=== PATIENT | male | born 1995 | race Two or more races ===

== ENCOUNTER 2023-03-21 12:08 | Outpatient (REF) | payer OTHER, SELFPAY ==
--- NOTE | ~2023-03-21 | US_ITS ---
EXAMINATION: US THYROID CLINICAL INFORMATION: Right thyroid nodule noted on previous CT COMPARISON: None available. TECHNIQUE: Linear transducer grayscale and color Doppler examination with attention to the region of the thyroid. FINDINGS: SIZE: Measurements of the thyroid lobes and nodules are given in sagittal, anteroposterior and transverse dimensions respectively. Right Thyroid Lobe: 5.6 x 2.2 x 3.5 cm, volume 22.6 mL. Parenchyma: The gland echotexture is homogeneous. Thyroid vascularity is normal. Left Thyroid Lobe: 4.8 x 1.7 x 1.5 cm, volume 6.4 mL. Parenchyma: The gland echotexture is homogeneous. Thyroid vascularity is normal. Isthmus: 0.3 cm in maximum AP dimension. Estimated total number of nodules greater than or equal to 1 cm: 1. Operator Cavity Pump nodules are described as follows: 1. Location: Right mid. Size: 3.1 x 1.7 x 2.5 cm, volume 6.9 mL. Nodule characteristics: Composition: Mixed cystic and solid (1). Echogenicity: Isoechoic (1). Shape: Not taller than wide (0). Margins: Smooth (0). Echogenic Foci: None (0). ACR TI-RADS total points: 2 ACR TI-RADS category: 2 NODES: No lymphadenopathy is seen in the tissue surrounding the thyroid gland. US/US thyroid IMPRESSION: 3.1 cm TR 2 mixed cystic and solid nodule right mid thyroid. No follow-up recommended as per ACR TI-RADS. ACR TI-RADS RECOMMENDATION REFERENCE: Ultrasound-guided fine-needle aspiration, followup ultrasound, no further follow up. * TR1 (0 point) and TR2 (2 points): No FNA or follow up. * TR3 (3 points): FNA if more than or equal to 2.5 cm in maximum dimension, followup ultrasound in 1, 3 and 5 years if 1.5 to 2.4 cm in maximum dimension. * TR4 (4-6 points): FNA if more than or equal to 1.5 cm in maximum dimension, followup ultrasound in 1, 2, 3 and 5 years if 1 to 1.4 cm in maximum dimension. * TR5 (more than or equal to 7 points): FNA if more than or equal to 1 cm in maximum dimension, followup ultrasound every year for 5 years if 0.5 to 0.9 cm in maximum dimension. * TR3, TR4 or TR5 nodules that are below the size threshold for followup receive no follow up.
== END 2023-03-21 12:09 | disposition home or self-care (01) ==
LOC: HO.UMASIMG 12:08
PROVIDERS: Visit Provider Family Medicine
DX: E04.1 Nontoxic single thyroid nodule (principal)
CPT/HCPCS: 76536

== ENCOUNTER 2023-12-03 06:32 | Outpatient (REF) | payer OTHER, SELFPAY ==
--- NOTE | ~2023-12-03 | US_ITS ---
EXAMINATION: US THYROID CLINICAL INFORMATION: Nontoxic single thyroid nodule, followup.. COMPARISON: Ultrasound thyroid 03/21/2023. TECHNIQUE: Linear transducer grayscale and color Doppler examination with attention to the region of the thyroid. FINDINGS: SIZE: Measurements of the thyroid lobes and nodules are given in sagittal, anteroposterior and transverse dimensions respectively. Right Thyroid Lobe: 5.8 x 1.8 x 1.9 cm, volume 10.4 mL. Previously 5.6 x 2.2 x 3.5 cm, volume 22.6 mL. Parenchyma: The gland echotexture is homogeneous. Thyroid vascularity is normal. Left Thyroid Lobe: 4.9 x 2.1 x 1.9 cm, volume 10.2 mL. Previously 4.8 x 1.7 x 1.5 cm, volume 6.4 mL. Parenchyma: The gland echotexture is homogeneous. Thyroid vascularity is normal. Isthmus: 0.41 cm in maximum AP dimension. Previously 0.30 cm. Estimated total number of nodules greater than or equal to 1 cm: 0. Squirrel Worker nodules are described as follows: 1. Location: Right mid. Size: 0.8 x 0.6 x 0.9 cm, volume 0.23 mL. Previously: 3.1 x 1.7 x 2.5 cm, volume 6.9 mL. Nodule characteristics: Composition: Solid (2). Echogenicity: Hypoechoic (2). Shape: Not taller than wide (0). Margins: Smooth (0). Echogenic Foci: None (0). ACR TI-RADS total points: 4 Previous: 2 ACR TI-RADS category: 4 Previous: 2 Significant change in size (>/= 20% in 2 dimensions and minimal increase of 2 mm or 50% or greater increase in volume): Yes Change in features: Yes Change in ACR TI-RADS risk category: Yes NODES: No lymphadenopathy is seen in the tissue surrounding the thyroid gland. US/US thyroid IMPRESSION: Decreased volume of the right lobe of the thyroid, most likely related with the significant interval decreased in size of a previously described 3 cm nodule which now measures 0.9 cm. The nodule demonstrates decreased cystic component, now classified as a TR-4 mostly solid hypoechoic nodule. Recommend follow-up ultrasound in one year. ACR TI-RADS RECOMMENDATION REFERENCE: Ultrasound-guided fine-needle aspiration, follow up ultrasound, no further followup. * TR1 (0 point) and TR2 (2 points): No FNA or followup * TR3 (3 points): FNA if more than or equal to 2.5 cm in maximum dimension, follow up ultrasound in 1, 3 and 5 years if 1.5 to 2.4 cm in maximum dimension. * TR4 (4-6 points): FNA if more than or equal to 1.5 cm in maximum dimension, follow up ultrasound in 1, 2, 3 and 5 years if 1 to 1.4 cm in maximum dimension. * TR5 (more than or equal to 7 points): FNA if more than or equal to 1 cm in maximum dimension, follow up ultrasound every year for 5 years if 0.5 to 0.9 cm in maximum dimension. * TR3, TR4 or TR5 nodules that are below the size threshold for follow up receive no followup. Electronically signed by: Lisa Rice MD 12/17/2023 04:29 PM EDT
== END 2023-12-03 06:33 | disposition home or self-care (01) ==
LOC: HO.UMASIMG 06:32
PROVIDERS: Visit Provider Family Medicine
DX: E04.1 Nontoxic single thyroid nodule (principal)
CPT/HCPCS: 76536

== ENCOUNTER 2024-07-02 06:30 | Outpatient (REF) | payer OTHER, SELFPAY ==
--- NOTE | ~2024-07-02 | US_ITS ---
EXAMINATION: US THYROID CLINICAL INFORMATION: Nontoxic single thyroid nodule. COMPARISON: 12/03/2023, 03/19/2023. TECHNIQUE: Linear transducer grayscale and color Doppler examination with attention to the region of the thyroid. FINDINGS: SIZE: Measurements of the thyroid lobes and nodules are given in sagittal, anteroposterior and transverse dimensions respectively. Right Thyroid Lobe: 5.4 x 1.6 x 2.1 cm, volume 9.5 mL. Parenchyma: The gland echotexture is homogeneous. Thyroid vascularity is normal. Left Thyroid Lobe: 4.8 x 1.7 x 1.6 cm, volume 6.8 mL. Parenchyma: The gland echotexture is homogeneous. Thyroid vascularity is normal. Isthmus: 0.24 cm in maximum AP dimension. Estimated total number of nodules greater than or equal to 1 cm: 0. Spooler Operator nodules are described as follows: 1. Location: Right midpole. Size: 0.8 x 0.6 x 0.6 cm, volume 0.14 mL. (Previously 0.8 x 0.6 x 0.9 cm) Nodule characteristics: Composition: Solid (2). Echogenicity: Hypoechoic (2). Shape: Not taller than wide (0). Margins: Ill-defined (0). Echogenic Foci: Punctate echogenic foci (3). ACR TI-RADS total points: 7 ACR TI-RADS category: 5. (Previously 4) NODES: No lymphadenopathy is seen in the tissue surrounding the thyroid gland. US/US thyroid IMPRESSION: 1. There is a right mid pole 0.8 cm TR category 5 nodule, slightly smaller than on the prior exam, although previously characterized as a TR category 4. 2. Remainder of the thyroid is normal. ACR TI-RADS RECOMMENDATION REFERENCE: Ultrasound-guided fine-needle aspiration, followup ultrasound, no further follow up. * TR1 (0 point) and TR2 (2 points): No FNA or follow up. * TR3 (3 points): FNA if more than or equal to 2.5 cm in maximum dimension, followup ultrasound in 1, 3 and 5 years if 1.5 to 2.4 cm in maximum dimension. * TR4 (4-6 points): FNA if more than or equal to 1.5 cm in maximum dimension, followup ultrasound in 1, 2, 3 and 5 years if 1 to 1.4 cm in maximum dimension. * TR5 (more than or equal to 7 points): FNA if more than or equal to 1 cm in maximum dimension, followup ultrasound every year for 5 years if 0.5 to 0.9 cm in maximum dimension. * TR3, TR4 or TR5 nodules that are below the size threshold for followup receive no follow up. Electronically signed by: Roni Brown MD 07/02/2024 12:50 PM EDT
== END 2024-07-02 06:31 | disposition home or self-care (01) ==
LOC: HO.UMASIMG 06:30
PROVIDERS: Visit Provider Family Medicine
DX: E04.1 Nontoxic single thyroid nodule (principal); L20.9 Atopic dermatitis, unspecified
CPT/HCPCS: 76536

== ENCOUNTER → 2024-07-02 11:30 | Outpatient (BNV) | payer OTHER, SELFPAY | PROVIDERS: Visit Provider Radiology Diagnostic Radiology | DX: E04.1 Nontoxic single thyroid nodule (principal) | CPT/HCPCS: 76536 ==

== ENCOUNTER 2024-12-24 08:52 | Outpatient (REF) | payer OTHER, SELFPAY ==
--- NOTE | ~2024-12-24 | US_ITS ---
EXAMINATION: US THYROID CLINICAL INFORMATION: Nontoxic single thyroid nodule. COMPARISON: July 02, 2024. TECHNIQUE: Linear transducer grayscale and color Doppler examination with attention to the region of the thyroid. FINDINGS: SIZE: Measurements of the thyroid lobes and nodules are given in sagittal, anteroposterior and transverse dimensions respectively. Right Thyroid Lobe: 5.6 x 1.7 x 2.0 cm, volume 10.0 mL. Previous: 5.4 x 1.6 x 2.1 cm, volume: 9.5 cc Parenchyma: The gland echotexture is normal. Thyroid vascularity is normal. Left Thyroid Lobe: 5.3 x 1.9 x 1.6 cm, volume 8.4 mL. Previous: 4.8 x 1.7 x 1.6 cm, volume: 6.8 cc. Parenchyma: The gland echotexture is normal. Thyroid vascularity is normal. Isthmus: 0.23 cm in maximum AP dimension. Previous: 0.24 cm. Estimated total number of nodules greater than or equal to 1 cm: 0. Checking Department Supervisor nodules are described as follows: 1. Location: Midportion right thyroid lobe. Size: 0.7 x 0.5 x 0.7 cm, volume 0.13 mL. Previous: 0.8 x 0.6 x 0.6 cm, volume: 0.14 cc. Nodule characteristics: Composition: Solid (2). Echogenicity: Hyperechoic (1). Shape: Not taller than wide (0). Margins: Smooth (0). Echogenic Foci: Macrocalcifications (1). ACR TI-RADS total points: 4 ACR TI-RADS category: 4 NODES: Prominent less than 0.8 cm lymph nodes in levels 1, 2 and 5 on the left side of the neck. US/US thyroid IMPRESSION: ACR TI-RADS category: 4 ACR TI-RADS RECOMMENDATION REFERENCE: Ultrasound-guided fine-needle aspiration, followup ultrasound, no further follow up. * TR1 (0 point) and TR2 (2 points): No FNA or follow up. * TR3 (3 points): FNA if more than or equal to 2.5 cm in maximum dimension, followup ultrasound in 1, 3 and 5 years if 1.5 to 2.4 cm in maximum dimension. * TR4 (4-6 points): FNA if more than or equal to 1.5 cm in maximum dimension, followup ultrasound in 1, 2, 3 and 5 years if 1 to 1.4 cm in maximum dimension. * TR5 (more than or equal to 7 points): FNA if more than or equal to 1 cm in maximum dimension, followup ultrasound every year for 5 years if 0.5 to 0.9 cm in maximum dimension. * TR3, TR4 or TR5 nodules that are below the size threshold for followup receive no follow up. Electronically signed by: Rios Antonio MD 12/24/2024 11:28 AM EDT
--- OUTSIDE RECORDS SUMMARY | 2024-12-24 09:24 | XMS_ITS | Encounter Summary ---
Author Organization [facility] Address [address] [place] [address] [place] [id number] Phone Care Team Providers Care Insole Reinforcer Name Role Phone Kelsey Subramanian DO Primary Care Provider [phone] Reason for Referral * MRI/CAT Scan - Closed Specialty Diagnoses / Procedures Referred By Aurora brock Referred To Contact Radiology Diagnoses Acute pharyngitis, unspecified etiology Neck swelling Procedures CT Neck Kelsey Subramanian DO [address] [place] [address] Phone: tel: fax: [email or web address] Referral ID Status Reason Start Date Expiration Date Visits Re quested Visits Authorized [id number] Closed 03/06/2023 1 1 Encounter Details Date Type Department Care Team (Late st Contact Info) Description 03/06/2023 Transcribe Orders Virtual Department [address] [place] [address] Kelsey Subramanian DO [address] [place] [address] [email or web address] Acute pharyngitis, unspecified etiology (Primary Dx); Neck swelling Social History Tobacco Use Types Packs/Day Years Used Date Smoking Tobacco: Never Assessed Education Answer Date Recorded Are you interested in more education? Not on demarco e 03/06/2023 Are you concerned about learning? Not on file 03/06/2023 No 03/06/2023 No 03/06/2023 Digital Access Answer Date Recorded No 03/06/2023 No 03/06/2023 Reliable internet access at home? Not on file 03/06/2023 Device with a working camera? Not on file Sex and Gender Information Value Date Recorded Sex Assigned at Not on file Legal Sex Male 1:32 PM EST Gender Identity Male 08/10/2024 8:38 PM EDT Sexual Orientation Not on file documented as of this encounter Plan of Treatment Not on file documented as of this encounter Results * CT NECK SOFT TISSUE WITH CONTRAST (03/12/2023 11:54 AM EST) Anatomical Region Laterality Modality Neck Computed Tomogra phy 03/14/2023 6:41 AM EST Impressions 03/14/2023 5:19 PM EST 2.4 cm right thyroid nodule, corresponding to the area of the skin marker. Consider thyroid ultrasound. Narrative 03/14/2023 5:[address] NECK SOFT TISSUE WITH CONTRAST Referring clinician's provided indication for this examination in [facility]: Outside Radiology Order; NECK SWELLING TECHNIQUE: Multidetector-row CT of the neck was performed with intravenous contrast using tailored dose modulation techniques. Images were reconstructed in the axial, coronal, and sagittal planes. COMPARISON: None FINDINGS: Aerodigestive Tract: Normal. The mucosa appears symmetrical. Lymph Nodes: Normal. There are no nodes meeting CT criteria for pathologic involvement. Salivary Glands: Normal. No obvious lesion is present. Thyroid Gland: 2.4 cm hypodense right thyroid nodule, corresponding to the area of the skin marker. Vessels: The major cervical vessels enhance normally. Paranasal Sinuses and Mastoids: Trace fluid in left maxillary sinus. The paranasal sinuses and mastoid air cells are otherwise well-aerated. Brain and Orbits: Normal. No detectable abnormality is present in the imaged portions of the brain and orbits. Lung Apices: Normal. No abnormal opacity is present. Bones and Soft Tissues: Normal. No suspicious osseous lesions are present. Procedure Note Ayan Roy MD - 03/14/2023 CT NECK SOFT TISSUE WITH CONTRAST Referring clinician's provided indication for this examination in [facility]:Outside Radiology Order; NECK SWELLING TECHNIQUE: Multidetector-row CT of the neck was performed with intravenouscontrast using tailored dose modulation techniques. Images werereconstructed in the axial, coronal, and sagittal planes. COMPARISON: None FINDINGS: Aerodigestive Tract: Normal. The mucosa appears symmetrical. Lymph Nodes: Normal. There are no nodes meeting CT criteria for pathologicinvolvement. Salivary Glands: Normal. No obvious lesion is present. Thyroid Gland: 2.4 cm hypodense right thyroid nodule, corresponding to thearea of the skin marker. Vessels: The major cervical vessels enhance normally. Paranasal Sinuses and Mastoids: Trace fluid in left maxillary sinus. Theparanasal sinuses and mastoid air cells are otherwise well-aerated. Brain and Orbits: Normal. No detectable abnormality is present in theimaged portions of the brain and orbits. Lung Apices: Normal. No abnormal opacity is present. Bones and Soft Tissues: Normal. No suspicious osseous lesions are present. IMPRESSION: 2.4 cm right thyroid nodule, corresponding to the area of the skin marker.Consider thyroid ultrasound. Kelsey Subramanian DO IMG CT XSPECIALTY ORDERABLES Final Result documented in this encounter Visit Diagnoses Diagnosis Acute pharyngitis, unspecified etiology- Primary Neck swelling Swelling, mass, or lump in head and neck Acute pharyngitis, unspecified etiology Neck swelling Swelling, mass, or lump in head and neck documented in this encounter Care Teams Insole Reinforcer Relationship Specialty Start Date End Date Kelsey Subramanian DO [address] [place] [id number] [email or web address] PCP - General Family Medicine 03/06/23 documented as of this encounter Additional Source Comments The information contained in this document represents components of the legal health record. It is not the complete legal health record.[facility]
--- OUTSIDE RECORDS SUMMARY | 2024-12-24 09:24 | XMS_ITS | Encounter Summary ---
Author Organization [facility] Address [address] [place] [address] [place] [phone] Phone Care Team Providers Care Air Traffic Control Specialist Center Name Role Phone Kelsey Subramanian DO Primary Care Provider [phone] Encounter Details Date Type Department Care Team (Late st Contact Info) Description 03/06/2023 Procedure Pass [facility], Ct Scan - [address] [address] Social History Tobacco Use Types Packs/Day Years Used Date Smoking Tobacco: Never Assessed Education Answer Date Recorded Are you interested in more education? Not on edmarco e 03/06/2023 Are you concerned about learning? [...] on file documented as of this encounter Visit Diagnoses Not on filedocumented in this encounter Care Teams Air Traffic Control Specialist Center Relationship Specialty Start Date End Date Kelsey Subramanian DO [address] [place] [id number] [email or web address] PCP - General Family Medicine 03/06/23 documented as of this encounter Additional Source Comments The information contained in this document represents components of the legal health record. It is not the complete legal health record.[facility]
--- OUTSIDE RECORDS SUMMARY | 2024-12-24 09:24 | XMS_ITS | Clinical Summary ---
Author Organization [facility] Address [address] [facility] [address] [place] [phone] Phone Care Team Providers Care Software Specialist Name Role Phone Moris eKlsey Dia BEACH Primary Care Provider [phone] Allergies No known active allergies Medications No known medications Active Problems No known active problems Social History Tobacco Use Types Packs/Day Years Used Date Smoking Tobacco: Unknown Tobacco Cessation:Counseling Given: Not Answered Education Answer Date Recorded Are you interested [...] PM EDT Sexual Orientation Not on file Last Filed Vital Signs Vital Sign Reading Time Taken Comments Blood Pressure 126/75 08/12/2024 9:12 AM EDT Pulse 71 08/12/2024 9:12 AM EDT Temperature - - Respiratory Rate - - Oxygen Saturation 97% 08/12/2024 9:12 AM EDT Inhaled Oxygen Concentration - - Weight 65 kg (143 lb 4.8 oz) 08/12/2024 9:12 AM EDT Height 170 cm (5' 6.93 ) 08/12/2024 9:12 AM EDT Body Mass Index 22.49 08/12/2024 9:12 AM EDT Plan of Treatment Health Maintenance Due Date Last Done Comments Adult Td,Tdap Booster 1993 DEPRESSION SCREENING 2005 SMOKING Hx and SMOKELESS TOBACCO SCREENING 2006 HEPATITIS C SCREENING 2011 HIV ONE-TIME SCREENING (18-6 5 YEARS) 2011 INFLUENZA VACCINE (#1) 2024 03/09/2020 COVID-19 VACCINE (2024-2 6 season) 2024 04/26/2022, 03/31/2021, 09/27/2020 HEPATITIS A VACCINES Aged Out No long er eligible based on patient's age to complete this topic HIB VACCINES Aged Out No longer eligi ble based on patient's age to complete this topic MENINGOCOCCAL VACCINES (ACWY) Aged Out No longer eligible based on patient's age to complete this topic MENINGOCOCCAL VACCINES (B) Aged Out N o longer eligible based on patient's age to complete this topic PNEUMOCOCCAL VACCINES (0-49 years) Aged Out No longer eligible b ased on patient's age to complete this topic Medical Devices Not on file Insurance [employer] [facility] [employer]IGNA [facility] Care Teams Software Specialist Relationship Specialty Start Date End Date Kelsey Subramanian DO [address] [place] [phone] [email or web address] PCP - General Family Medicine 03/06/23 Additional Source Comments The information contained in this document represents components of the legal health record. It is not the complete legal health record.[facility]
== END 2024-12-24 08:53 | disposition home or self-care (01) ==
LOC: HO.UMASIMG 08:52
PROVIDERS: Visit Provider Family Medicine
DX: E04.1 Nontoxic single thyroid nodule (principal)
CPT/HCPCS: 76536

== ENCOUNTER → 2024-12-24 10:30 | Outpatient (BNV) | payer OTHER, SELFPAY | PROVIDERS: Visit Provider Radiology Diagnostic Radiology | DX: E04.1 Nontoxic single thyroid nodule (principal) | CPT/HCPCS: 76536 ==